=== PATIENT | female | born 1965 ===

== ENCOUNTER 2018-03-09 05:07 | Inpatient (IN) | payer OTHER ==
[2018-03-09] VITALS (10 sets, daily range): BP systolic 105–139; BP diastolic 68–90
[~2018-03-09] VITALS: Ht 161.3 cm; Wt 76.2 kg
[2018-03-09] MEDS ORDERED: Dexamethasone 20mg/5ml IVP ONE (06:00)
[2018-03-09] MEDS ORDERED: ceFAZolin 1gm/50ml Premix 50 ML IV ONE (06:00)
[2018-03-09] MEDS ORDERED: NKM (06:05)
[2018-03-09] MEDS ORDERED: LR 1000ml 1,000 ML IVLG SCH (06:07)
--- NOTE | 2018-03-09 06:08 | Anethesia Preoperative Eval ---
Anesthesia Pre-op PMH/ROS General Date of Evaluation: Mar 09, 2018 Time of Evaluation: 07:11 Anesthesiologist: Tevin ASA Score: ASA 2 Mallampati Score Class I : Soft palate, uvula, fauces, pillars visible Class II: Soft palate, uvula, fauces visible Class III: Soft palate, base of uvula visible Class IV: Only hard plate visible Mallampati Classification: Class II Surgeon: Sterling Diagnosis: Neck Pain Surgical Procedure: ACDF C5-6 Anesthesia History: none Family History: no anesthesia problems Allergies: Coded Allergies: No Known Allergies (Unverified , 03/09/18) Medications: see eMAR Patient NPO?: Yes Past Medical History Neurologic/Psychiatric: Reports: depression/anxiety Other: obesity - BMI 30 PSxH Narrative: CTS, TL Anesthesia Pre-op Phys. Exam Physician Exam Last Vital Signs Date Time Temp Pulse Resp B/P (MAP) Pulse Ox O2 Delivery O2 Flow Rate FiO2 03/09/18 05:59 Room Air Constitutional: NAD Neurologic: CN 2-12 intact Cardiovascular: RRR Respiratory: CTA Gastrointestinal: S/NT/ND Airway Exam Mallampati Score: Class II MO: full ROM: limited Teeth: missing, intact Anesthesia Pre-op A/P Risk Assessment & Plan Assessment: ASA 2 Plan: GA, SED, GlideScope Go Status Change Before Surgery: No Pre-Antibiotics Dru Grams Ancef IV Given Within 1 Hr of Incision: Yes Time Given: 07:31 Mitul Abarca MD Mar 09, 2018 06:08
[2018-03-09] MEDS ORDERED: fentaNYL 100 mcg/2 mL IV PRN (06:12)
[2018-03-09] MEDS ORDERED: Metoclopramide 10mg/2ml Inj IVP PRN (06:15)
[2018-03-09] MEDS ORDERED: Norco 5mg/325mg tab ORAL PRN (06:15)
[2018-03-09] MEDS ORDERED: oxyCODONE HCL/Acetaminophen 5/325mg ORAL PRN (06:15)
[2018-03-09] MEDS ORDERED: HYDROcodone/Acetamin 7.5/325 tab ORAL PRN (06:15)
[2018-03-09] MEDS ORDERED: Midazolam 2mg/2ml Inj IVP PRN (06:15)
[2018-03-09] MEDS ORDERED: Hydromorphone 0.5mg/0.5ml inj IVP PRN (06:15)
[2018-03-09] MEDS ORDERED: Ketorolac 30mg Inj IV PRN ×2 (06:15)
[2018-03-09] MEDS ORDERED: Atropine Sulfate 0.4mg/ml inj IVP PRN (06:15)
[2018-03-09] MEDS ORDERED: DiphenhydrAMINE 50mg/ml Inj IVP PRN (06:15)
[2018-03-09] MEDS ORDERED: Meperidine 50mg/ml Inj(FOR RIGORS ONLY) IVP PRN (06:15)
[2018-03-09] MEDS ORDERED: LORazepam Inj 2mg/ml 1ml IV PRN (06:15)
[2018-03-09] MEDS ORDERED: Zemuron 50mg/5ml Inj IV ONE ×2 (06:32→06:33)
[2018-03-09] MEDS ORDERED: Lidocaine 1% Plain 30 ml INJ ONE (06:42)
[2018-03-09] MEDS ORDERED: Sodium Chloride 10ml vial INJ ONE (06:42)
[2018-03-09] MEDS ORDERED: Lidocaine 1% MPF 10mg/ml 5ml ONE (06:42)
[2018-03-09] MEDS ORDERED: fentaNYL 100 mcg/2 mL IV ONE ×2 (06:43→08:26)
[2018-03-09] MEDS ORDERED: Gelfoam Size TOPIC ONE (06:45)
[2018-03-09] MEDS ORDERED: Bacitracin 50000 Units Vial ONE (06:45)
[2018-03-09] MEDS ORDERED: Thrombin 5000 units TOPIC ONE ×2 (06:45→08:41)
[2018-03-09] MEDS ORDERED: Sterile Water Irrig 1000ml IRRIG ONE (07:00)
[2018-03-09] MEDS ORDERED: NS Irrig 1000ml ONE (07:00)
[2018-03-09] MEDS ORDERED: Acetaminophen (Non formulary) 100 ML IV ONE (07:00)
[2018-03-09] MEDS ORDERED: LR 1000ml ONE (07:00)
--- NOTE | 2018-03-09 07:07 | Immediate Post-Op Evaluation ---
Immediate Post-Op Evalulation Immediate Post-Op Evalulation Procedure: ACDF C5-6 Date of Evaluation: Mar 09, 2018 Time of Evaluation: 09:53 IV Fluids: 800 LR Blood Products: 0 Estimated Blood Loss: 15 Urinary Output: 0 Blood Pressure Systolic: 133 Blood Pressure Diastolic: 85 Pulse Rate: 84 Respiratory Rate: 16 O2 Sat by Pulse Oximetry: 100 Temperature (Fahrenheit): 97.3 Pain Score (1-10): 2 Nausea: No Vomiting: No Complications 0 Patient Status: awake, reacts, patent, extubated, none Hydration Status: adequate Dru Grams Ancef IV Given Within 1 Hr of Incision: Yes Time Given: 07:31 Mitul Abarca MD Mar 09, 2018 07:06
--- NOTE | 2018-03-09 07:14 | Pre-Procedure Note/Attestation ---
Pre-Procedure Note/Attestation Complete Prior to Procedure Planned Procedure: not applicable Procedure Narrative: ACDF C5-C6 Anterior Internal Plate Fixation Indications for Procedure Pre-Operative Diagnosis: Trauma. HNP radiculopathy Attestation I attest that I discussed the nature of the procedure; its benefits; risks and complications; and alternatives (and the risks and benefits of such alternatives ), prior to the procedure, with the patient (or the patient's legal small business representative). I attest that, if there was a reasonable possibility of needing a blood transfusion, the patient (or the patient's legal small business representative) was given the [facility] standardized written summary, pursuant to the [place] Blood Safety Act ([place] Health and Safety Code # 1645, as amended). I attest that I re-evaluated the patient just prior to the surgery and that there has been no change in the patient's H&P, except as documented below: Seven Katz MD Mar 09, 2018 07:14
[2018-03-09] MEDS ORDERED: NS Irrig 1000ml IRRIG ONE (08:40)
[2018-03-09] MEDS ORDERED: Glycopyrrolate 0.2mg/ml 1ml Vial ONE (09:09)
[2018-03-09] MEDS ORDERED: Naloxone 0.4mg/ml Inj ONE (09:12)
--- NOTE | 2018-03-09 09:30 | Brief Operative Note ---
Immediate Post Operative Note Operative Note Pre-op Diagnosis: Trauma. HNP radiculopathy Procedure: C5-C6 ACDF, Plate xray SSEP magnification Bioactive material Post-op Diagnosis: same as pre-op Findings: consistent w/pre-op dx studies Surgeon: Sterling WHITTEN Head Animal Keeper: Song WHITTEN Anesthesiologist: Tevin WHITTEN Anesthesia: general Specimen: yes Complications: none Condition: stable Fluids: anesthesia Estimated Blood Loss: minimal Drains: none Implant(s) used?: Yes Seven Katz MD Mar 09, 2018 09:30
[2018-03-09] MEDS ORDERED: Propofol 1,000mg/ 100ml btl IV ONE (10:15)
--- NOTE | 2018-03-09 11:07 | Diagnostic Imaging Report ---
INDICATION: Pain, intraoperative TECHNIQUE: Intraoperative imaging Fluoroscopy time: 13.4 seconds Total dose: 1.35 mGy Total number of images: 3 COMPARISON: None FINDINGS: Intraoperative images demonstrate surgical tool ejected level of the C5-6 disc. Subsequent images document anterior fusion and placement of cervical fusion hardware at C5-6. IMPRESSION: Intraoperative imaging, as described
[2018-03-09] MEDS ORDERED: D5 1/2NS 1,000 ML IV SCH (11:40)
[2018-03-09] MEDS ORDERED: Naloxone 0.4mg/ml Inj IVP PRN (12:00)
[2018-03-09] MEDS ORDERED: ceFAZolin sod 1 GM in D5W 55 ML IV SCH (15:30)
--- NOTE | 2018-03-09 16:15 | Operative Note - Dictated ---
DATE OF OPERATION: 03/09/2018 SURGEON: Seven Katz M.D. MANUFACTURERS REPRESENTATIVE SURGEON: Adelso Zuleta M.D. ANESTHESIOLOGIST: Mitul Abarca M.D. ANESTHESIA: General with intubation. 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 OPERATIVE PROCEDURE: 1. Anterior cervical diskectomy with fusion. 2. Interbody titanium device with lordosis, correction deformity. 3. Placement of osteopromotive material with autograft C5-C6. 4. Anterior internal plate fixation C5-C6. 5. SSEP monitoring, high-power dissection. 6. Intraoperative fluoroscopy interpreted by surgeons. ESTIMATED BLOOD LOSS: Minimal. POSTOPERATIVE CONDITION: Good/stable. DRAINS: None. SPECIMEN: Disc fragments C5-C6 to pathology. DESCRIPTION OF PROCEDURE: The patient was brought to the operating room and in the supine position, general anesthesia with intubation was induced. IV antibiotics, IV Decadron were administered 30 minutes prior to incision time. The needle within the sheath-not penetrating the skin at any time was taped to the contralateral aspect of the neck from the intended incision placement (right side neck) and a cross-table fluoroscopic image was obtained and interpreted by surgeons for determination of incision level placement. Level was marked accordingly on the left side of the neck. The right marker was removed. Anterior cervical spine was sterilely prepped and draped free in usual sterile fashion. A transverse incision in the left was sharply placed in the dermis and epidermis. Electrocautery dissection was carried through subcutaneous tissue to the level of the platysmas muscle. It was identified, isolated and transected in line with the incision. Subcutaneous bleeding was controlled with bipolar electrocauterization-minimal. Blunt dissection was carried through the deep cervical pretracheal fascia medial to the left sternocleidomastoid muscle and the left carotid sheath to the midline between the longus colli muscles. Spinal needle was placed in the disc space. Cross-table imaging was obtained demonstrating the correct level for further dissection. All procedures under sterile conditions. Level marked. Longus coli muscle retractors placed. Under high-power magnification, moderate anterior osteophyte was resected with Midas Patel bur dissection. The disc space was denuded of cartilaginous end plates. With Midas Patel bur dissection to the posterior longitudinal ligament. Decompression. Interpositional graft to the appropriate dimension to trial of interbody graft 6 mm in height with lordosis. AP and lateral, determination of correct placement obtained prior to insertion of the final device with fluoroscopic guidance. Level marked. Interpositional grafting with titanium graft containing osteopromotive material with autograft, tapped into position. AP and lateral radiographs demonstrated excellent alignment and position. All traction on the neck (10 pounds) was removed. Anterior internal plate fixation compressive fashion was undertaken with fluoroscopic guidance determining the midline. Depth of screws also determined with fluoroscopic guidance. Screws locked into position. Purchase into the bone was excellent. The patient is stable. Interval was irrigated with antibiotic-containing saline. FloSeal applied. Exploration revealed no obvious excoriation or laceration of vital structures. Reapproximation with Vicryl suture material to the platysmas muscle followed with reapproximation dermis and epidermis. Surgical strips followed with Dermabond and a sterile bandage after the Dermabond dried. Bandage maintained in place with tape. The patient awakened, extubated in the operating room, and transported to postop recovery in good stable condition. Seven Katz M.D. DR: Saud JOB#: [id number] CC:
[2018-03-09] MEDS ORDERED: HYDROcodone/Acetamin 10/325 tab ORAL PRN (17:30)
[2018-03-09] MEDS ORDERED: HYDROmorphone 1mg/ml Carpuject IVP PRN (17:30)
[2018-03-09] MEDS ORDERED: SOMA350 MG PO (20:40)
[2018-03-09] MEDS ORDERED: NORCO 10-325 T1 EACH ORAL (20:42)
--- NOTE | 2018-03-09 21:30 | Consultation ---
DATE OF CONSULTATION: 03/09/2018 CARDIOLOGY/INTERNAL MEDICINE CONSULTATION REFERRING PHYSICIAN: Seven Katz M.D. REASON FOR REFERRAL: Postoperative medical management and pain. HISTORY OF PRESENT ILLNESS: This is a middle-aged female, who is known to me from prior evaluation in the office. The patient presents having cataract surgery, under the care of Dr. Katz today. Postop day, it was notified by the nursing staff that she was experiencing significant amount of pain. So, when I arrived to see her, she had received some of the medication that she was given by Dr. Katz to be used as an outpatient. She has run out of pain control, but she is uncomfortable. She really denies any chest pain or pressure. There is no shortness of breath. There is no palpitations. There is no dizziness at this time, although she was dizzy earlier today. PAST MEDICAL HISTORY: Positive for history of arthritis and carpal tunnel syndrome for which she underwent surgery for. She has had tubal ligations. ALLERGIES: She is not allergic to any medications. SOCIAL HISTORY: She denies alcohol, tobacco, or drugs. She is . She has 5 kids. 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 REVIEW OF SYSTEMS: GASTROINTESTINAL: She has had some nausea. No vomiting. She has not had bowel movements yet. GENITOURINARY: She has multiple bouts of urination. PULMONARY: Negative. She does have some sore throat after her surgery. PHYSICAL EXAMINATION: GENERAL: Shows to be middle-aged female, in no respiratory distress. She has a dressing on the anterior part of her left side of her neck that appears to be clean and dry. LUNGS: Clear to auscultation and percussion. CARDIAC: Regular rate and rhythm. No heaves, thrills, or gallops noted. ABDOMEN: Soft and nontender. Positive bowel sounds. EXTREMITIES: There is no edema. NEUROLOGIC: She is awake, alert, and responsive. She moves all four extremities. ASSESSMENT AND PLAN: 1. Cervical radiculopathy, now status post surgery. 2. Postoperative pain. The patient was seen internal medicine consultation. The patient should resume pain medications as ordered by Dr. Katz. She may be going home this evening as per recommendations of Dr. Katz. Tello Severino M.D. DR: ARSENIO JOB#: [id number] CC:
[2018-03-11 10:31] VITALS: BP 120/80
--- NOTE | 2018-03-11 10:31 | 48 Hour Post Anesthesia Eval ---
Post Anesthesia Evaluation Procedure: ACDF C5-6 Date of Evaluation: Mar 11, 2018 Time of Evaluation: 10:31 Blood Pressure Systolic: 120 0: 80 Pulse Rate: 70 Respiratory Rate: 15 O2 Sat by Pulse Oximetry: 98 Airway: patent Nausea: No Vomiting: No Pain Intensity: 3 Hydration Status: adequate Cardiopulmonary Status: stable Mental Status/LOC: patient returned to baseline Post-Anesthesia Complications: none Follow-up care needed: N/A Chrissy Parker CRNA Mar 11, 2018 10:31
== END 2018-03-09 22:10 | disposition home or self-care (01) | DRG 473 ==
LOC: SUR 05:07 → OBSVTOIN 10:14 → 3E 10:14
PROC: 0RT30ZZ Resection of Cervical Vertebral Disc, Open Approach (ICD-10-PCS; principal; 2018-03-09 07:00)
PROC: 0RG10A0 Fusion of Cervical Vertebral Joint with Interbody Fusion Device, Anterior Approach, Anterior Column, Open Approach (ICD-10-PCS; principal; 2018-03-09 07:00)
PROC: 4A11X4G Monitoring of Peripheral Nervous Electrical Activity, Intraoperative, External Approach (ICD-10-PCS; principal; 2018-03-09 07:00)
DX: S13.161S Dislocation of C5/C6 cervical vertebrae, sequela (principal); V89.2XXS Person injured in unspecified motor-vehicle accident, traffic, sequela; G89.18 Other acute postprocedural pain; M54.12 Radiculopathy, cervical region; R29.818 Other symptoms and signs involving the nervous system
CPT/HCPCS: 36415; 72040; 76001; 86850; 86900; 86901; 87081; 94003; 94150; 96360; 96361; G0378; J2405